=== PATIENT | male | born 1945 | race Caucasian/White ===

== ENCOUNTER 2016-09-12 05:46 | Observation (INO) | payer MEDICARE, BC ==
[~2016-09-12] VITALS: Ht 193 cm; Wt 97.5 kg
[2016-09-12] VITALS (14 sets, daily range): BP systolic 98–124; BP diastolic 56–74
[2016-09-12] MEDS ORDERED: LORAZEPAM2 MG ORAL (06:05)
[2016-09-12] MEDS ORDERED: OXYCODONE-ACET1 EAC3 ORAL (06:05)
[2016-09-12] MEDS ORDERED: FAMOTIDINE20 MG ORAL (06:05)
[2016-09-12] MEDS ORDERED: SIMVASTATIN40 MG ORAL (06:05)
[2016-09-12] MEDS ORDERED: CIPRO500 MG PO (06:05)
[2016-09-12] MEDS ORDERED: Propofol 10mg/ml 20ml IV ONE ×3 (07:12→07:30)
[2016-09-12] MEDS ORDERED: Bacitracin 50000 Units Vial ONE (07:12)
[2016-09-12] MEDS ORDERED: Lidocaine 0.5% Epi 50 mL Vial ONE (07:12)
[2016-09-12] MEDS ORDERED: Bupivacaine w/Epi 0.25% 30ml Vial INJ ONE (07:30)
[2016-09-12] MEDS ORDERED: Midazolam 2mg/2ml Inj ONE (07:30)
[2016-09-12] MEDS ORDERED: NS Irrig 1000ml ONE (07:30)
[2016-09-12] MEDS ORDERED: Sterile Water Irrig 1000ml IRRIG ONE (07:30)
[2016-09-12] MEDS ORDERED: Ketorolac 30mg Inj ONE (07:30)
[2016-09-12] MEDS ORDERED: fentaNYL 100 mcg/2 mL IV ONE (07:30)
[2016-09-12] MEDS ORDERED: Morphine Sulfate 10mg/ml Inj ONE (07:30)
[2016-09-12] MEDS ORDERED: LR 1000ml ONE (07:30)
--- NOTE | 2016-09-12 07:49 | Pre-Procedure Note/Attestation ---
Pre-Procedure Note/Attestation Complete Prior to Procedure Planned Procedure: not applicable Procedure Narrative: Insertion of inflatable penile prosthesis Indications for Procedure Pre-Operative Diagnosis: Erectile dysfunction Attestation I attest that I discussed the nature of the procedure; its benefits; risks and complications; and alternatives (and the risks and benefits of such alternatives ), prior to the procedure, with the patient (or the patient's legal sales representative public utilities). I attest that, if there was a reasonable possibility of needing a blood transfusion, the patient (or the patient's legal sales representative public utilities) was given the [facility] standardized written summary, pursuant to the Denis Chris Blood Safety Act ([place] Health and Safety Code # 1645, as amended). I attest that I re-evaluated the patient just prior to the surgery and that there has been no change in the patient's H&P, except as documented below: JAE WOOTEN Sep 12, 2016 07:49
[2016-09-12] MEDS ORDERED: LR 1000ml 1,000 ML IVLG SCH (08:54)
--- NOTE | 2016-09-12 08:54 | Anethesia Preoperative Eval ---
Anesthesia Pre-op PMH/ROS General Date of Evaluation: Sep 12, 2016 Time of Evaluation: 07:15 Anesthesiologist: Adán ASA Score: ASA 3 Mallampati Score Class I : Soft palate, uvula, fauces, pillars visible Class II: Soft palate, uvula, fauces visible Class III: Soft palate, base of uvula visible Class IV: Only hard plate visible Mallampati Classification: Class II Surgeon: Alter Diagnosis: Erectail dysfunction Surgical Procedure: Placement of penile prosteses Anesthesia History: none Family History: no anesthesia problems Allergies: Coded Allergies: TETRACYCLINE (Verified Allergy, Unknown, 09/11/16) Past Medical History Cardiovascular: Reports: CAD - s/p coronary stents placement no recent CP, HTN - mild, [place] - 8 years ago Pulmonary: Denies: COPD, JEANNETTE, asthma, other Gastrointestinal/Genitourinary: Reports: GERD, Denies: CRI, ESRD, other Neurologic/Psychiatric: Reports: depression/anxiety, Denies: CVA, TIA, dementia, other Endocrine: Denies: DM, hypothyroidism, other, steroids HEENT: Denies: VIEJAS (L), VIEJAS (R), cataract (L), cataract (R), glaucoma, other Hematology/Immune: Denies: DVT, anemia, bleeding disorder, other Musculoskeletal/Integumentary: Denies: DDD, DJD, OA, RA, edema, other PMH Narrative: as above PSxH Narrative: prostatectomy, T&A Anesthesia Pre-op Phys. Exam Physician Exam Last Vital Signs Date Time Temp Pulse Resp B/P Pulse Ox O2 Delivery O2 Flow Rate FiO2 09/12/16 06:18 98.1 86 17 124/73 96 Room Air Constitutional: NAD Neurologic: CN 2-12 intact Cardiovascular: RRR, no M/R/G Respiratory: CTA Gastrointestinal: S/NT/ND Airway Exam Mallampati Score: Class II MO: limited Neck: stiff ROM: limited Teeth: missing Dentures: no lower, no upper Anesthesia Pre-op A/P Labs see chart Studies Pre-op Studies: EKG - SR Risk Assessment & Plan Assessment: ASA 3 Plan: GA with ETT Status Change Before Surgery: No Pre-Antibiotics Drug: Ancef 2gr. Gentamycin 80mg. Given Within 1 Hr of Incision: Yes Time Given: 08:52 SABA PERALTA M.D. Sep 12, 2016 08:54
[2016-09-12] MEDS ORDERED: DiphenhydrAMINE 50mg/ml Inj IVP PRN (09:00)
[2016-09-12] MEDS ORDERED: fentaNYL 100 mcg/2 mL IV PRN (09:00)
[2016-09-12] MEDS ORDERED: Hydromorphone 0.5mg/0.5ml inj IVP PRN (09:00)
[2016-09-12] MEDS ORDERED: Lidocaine 1% 10mg/ml/Epi 0.005mg/ml 30ml vial INJ ONE (09:50)
[2016-09-12] MEDS ORDERED: Bacitracin Oint 15gm Tube TOPIC ONE (11:55)
[2016-09-12] MEDS ORDERED: LORazepam 1mg tab ORAL PRN (12:00)
[2016-09-12] MEDS ORDERED: Morphine Sulfate 4mg/ml Inj IVP PRN (12:00)
[2016-09-12] MEDS ORDERED: Norco 5mg/325mg tab ORAL PRN (12:00)
--- NOTE | 2016-09-12 12:21 | Immediate Post-Op Evaluation ---
Immediate Post-Op Evalulation Immediate Post-Op Evalulation Procedure: Penile prosteses placement Date of Evaluation: Sep 12, 2016 Time of Evaluation: 12:19 IV Fluids: 1400 Blood Products: none Estimated Blood Loss: 100 Urinary Output: 150 Blood Pressure Systolic: 106 Blood Pressure Diastolic: 57 Pulse Rate: 82 Respiratory Rate: 20 O2 Sat by Pulse Oximetry: 99 Temperature (Fahrenheit): 97.5 Pain Score (1-10): 2 Nausea: No Vomiting: No Complications none Patient Status: reacts, patent, extubated, none Hydration Status: adequate SABA PERALTA M.D. Sep 12, 2016 12:21
[2016-09-12] MEDS ORDERED: Tobramycin 0.3% Opth Oint 3.5gm RIGHT EYE SCH (16:00)
[2016-09-12] MEDS: ceFAZolin sod 1 GM in D5W 55 ML IV SCH (16:41)
[2016-09-12] MEDS: D5 1/2NS w/KCl 20mEq 1,000 ML IV SCH (16:41)
[2016-09-12 16:52] LABS: ANION GAP 14 (5-15); CALCIUM 8.5 mg/dL (8.6-10.2); CARBON DIOXIDE 26 mEQ/L (20-30); CHLORIDE 101 mEQ/L (98-107); CREATININE 1.2 mg/dL (0.7-1.2); HEMOLYSIS 9; SODIUM 141 mEQ/L (135-145)
[2016-09-12] MEDS: Tobramycin Op Soln 0.3% RIGHT EYE SCH ×2 (17:31→20:29)
[2016-09-12] MEDS ORDERED: Ondansetron ODT 8mg tab SL PRN (18:45)
[2016-09-12] MEDS ORDERED: LORazepam 0.5mg tab ONE (20:25)
--- NOTE | 2016-09-12 20:27 | Operative Note - Dictated ---
DATE OF OPERATION: 09/12/2016 PREOPERATIVE DIAGNOSES: 1. Erectile dysfunction with Peyronie's disease. 2. Excess ventral penile skin. POSTOPERATIVE DIAGNOSES: 1. Erectile dysfunction with Peyronie's disease. 2. Excess ventral penile skin. PROCEDURE: 1. Insertion of CTMG 700 MS series penile prothesis. 2. Excision of excess ventral distal penile skin. SURGEON: Braydon Lovell M.D. ANESTHESIA: General. INDICATION: The patient is a 71-year-old male with erectile dysfunction and Peyronie's disease. The patient underwent radical prostatectomy years ago. He also tried injections for Peyronie's disease. He has a palpable Peyronie's plaque in the mid shaft. He also has redundant excess ventral skin on the distal two-thirds of the shaft of the penis. OPERATION: The patient was given general anesthesia. He was placed in supine position. He was given a 15 minute Betadine prep. He was draped in the usual manner. An approximately a 3 cm incision was made in the midline of the penoscrotal junction. Blunt and sharp dissection was done to dissect down to the tunica proximal to the penoscrotal junction on each side just lateral to the urethra. Corporotomies were placed on both sides to make incision of approximately 2 cm. The erectile chambers dilated easily proximally and distally with the usual dilators. Distal measurement was 11 cm and proximal measurement was 8 cm. It was decided to use 15 cm cylinders with 4 cm rear-tip to give a total length of 19 cm. The measurements were the same on both sides. The pre-placed sutures of 2-0 PDS were placed in the corporotomies. The 700 CX cylinders were placed into each corporal body. The cylinders were pre-connected to the reservoir. The 15 cm cylinders with 4 cm rear-tip were placed without any redundancy. The pre-placed sutures of 2-0 PDS were then tied to close the corporotomies. The implant was activated and found to have good erection on both sides of good placement. The patient did have some mild concavity along the left mid shaft due to Peyronie's disease. Blunt and sharp dissection was done anterior to the left hemiscrotum to place the reservoir anterior to the testicle. The pump was placed and space around the pump was closed with interrupted 4-0 Monocryl sutures. Because the patient had previous radical prostatectomy, it was decided to make a second incision. Approximately 4 cm incision was made just lateral to the left anterior superior spine. Incision was carried through subcutaneous tissue. The external oblique fascia was incised. The internal oblique muscle and transversalis fascia was bluntly dissected. The 65 cm around reservoir was placed in the retroperitoneal space and filled up with 65 cubic centimeters fluid. The tubing was then threaded down into the scrotum. The muscle was closed with some interrupted 3-0 Vicryl sutures. External oblique was closed with running 3-0 Vicryl. Subcutaneous tissue was closed with interrupted 3-0 Vicryl. The skin was closed with intradermal 4-0 Monocryl followed by subcuticular suture of 4-0 Monocryl. Connection from the pump to the reservoir was then made using quick-connects. The implant was not functional and found to have a good erection with good deflation. As stated he had mild concavity along the left lateral shaft to the peroneus. The patient was oozing somewhat from the corporotomies. Therefore it was decided to put a 10-[place] round drain through a separate stab incision in the right pubic area. The scrotum was then closed with dartos fascia, closed in two layers with running 4-0 Monocryl. The skin was closed with a subcuticular suture of 4-0 Monocryl. Prior to closure, all bleeding was attempted to be was stopped. During the case, vigorous irrigation with antibiotic solution was performed. The patient had redundant skin along the ventral shaft of the penis from the frenulum proximally. This was excised in elliptical manner. It was then closed with a running 4-0 Monocryl to the dartos fascia and subcuticular stitch of 4-0 Monocryl in the skin. Gonzales catheter was removed. The patient was left partially inflated. Sterile dressings were placed over the drain and over all the incisions. The patient tolerated procedure well and left the operating room in good condition. Braydon Lovell M.D. DR: Carly JOB#: [id number] CC:
[2016-09-12] MEDS ORDERED: NS IVPB ONE (21:00)
[2016-09-12] MEDS ORDERED: GENTAMICIN IVPB ONE (21:00)
[2016-09-12] MEDS ORDERED: Atorvastatin 20mg tab ORAL SCH (21:00)
[2016-09-12] MEDS ORDERED: LORazepam 1mg tab ORAL SCH (21:00)
[2016-09-13] MEDS: ceFAZolin sod 1 GM in D5W 55 ML IV SCH ×2 (00:38→08:37)
[2016-09-13] MEDS: D5 1/2NS w/KCl 20mEq 1,000 ML IV SCH ×2 (00:38→08:00)
[2016-09-13] MEDS: Tobramycin Op Soln 0.3% RIGHT EYE SCH ×4 (00:39→13:00)
[2016-09-13 00:55] VITALS: BP 108/66
[2016-09-13] MEDS ORDERED: Bacitracin Oint 15gm Tube TOPIC PRN (07:15)
[2016-09-13] MEDS ORDERED: Bacitracin Oint UD TOPIC PRN (07:15)
--- NOTE | 2016-09-13 07:17 | General Progress Note ---
Progress Note Progress Note Afebrile. Feeling fine. Gonzales inserted last nite. Now Gonzales out. Scrotum mild swelling. Wounds fine. Plan: Trial of voiding Discharge JAE WOOTEN Sep 13, 2016 07:17
[2016-09-13 08:00] VITALS: BP 117/64
--- NOTE | 2016-09-13 09:26 | 48 Hour Post Anesthesia Eval ---
Post Anesthesia Evaluation Procedure: Penile prosteses placement Date of Evaluation: Sep 13, 2016 Time of Evaluation: 09:25 Blood Pressure Systolic: 128 0: 65 Pulse Rate: 76 Respiratory Rate: 20 Temperature (Fahrenheit): 97.3 O2 Sat by Pulse Oximetry: 99 Airway: patent Nausea: No Vomiting: No Pain Intensity: 3 Hydration Status: adequate Cardiopulmonary Status: stable Mental Status/LOC: patient returned to baseline Follow-up Care/Observations: n/a Post-Anesthesia Complications: none Follow-up care needed: ready to discharge SABA PERALTA M.D. Sep 13, 2016 09:26
[2016-09-13 12:00] VITALS: BP 121/66
[2016-09-13] MEDS ORDERED: Tubing IV Secondary IV ONE (13:59)
== END 2016-09-13 14:00 | disposition home or self-care (01) ==
LOC: SUR 05:46 → 3E 13:10
DX: N52.9 Male erectile dysfunction, unspecified (principal); N48.6 Induration penis plastica; L98.7 Excessive and redundant skin and subcutaneous tissue; I25.10 Atherosclerotic heart disease of native coronary artery without angina pectoris; I25.2 Old myocardial infarction; I10 Essential (primary) hypertension; E78.5 Hyperlipidemia, unspecified; K21.9 Gastro-esophageal reflux disease without esophagitis; F41.1 Generalized anxiety disorder; F29 Unspecified psychosis not due to a substance or known physiological condition; F45.8 Other somatoform disorders; F51.05 Insomnia due to other mental disorder; L57.0 Actinic keratosis; L82.1 Other seborrheic keratosis; Z85.46 Personal history of malignant neoplasm of prostate; Z09 Encounter for follow-up examination after completed treatment for conditions other than malignant neoplasm; Z90.79 Acquired absence of other genital organ(s); Z88.1 Allergy status to other antibiotic agents; Z79.82 Long term (current) use of aspirin; Z79.02 Long term (current) use of antithrombotics/antiplatelets
CPT/HCPCS: 15839; 36415; 54405; 80048; G0378 ×2; J0690; J1580; J1885; J2250; J2270 ×2; J2405; J2704; J3010; J7120; 94003; 94150